=== PATIENT | female | born 1990 | race Caucasian/White ===

== ENCOUNTER 2021-07-17 14:00 | Outpatient (CLI) | payer MEDICAID, SELFPAY ==
[2021-07-17] VITALS (15 sets, daily range): BP systolic 95–108; BP diastolic 53–69; PULSE 80–127; RESP 18; TEMP 36.5; O2SAT 98–100; BMI 34.7
[2021-07-17 14:46] LABS: Basophils % 0.4 %; Eosinophils # 0.1 10^3/uL (0.0-0.8); Hematocrit 29.6 % (37.0-47.0); Hemoglobin 9.5 g/dL (11.5-15.3); Lymphocytes # 1.9 10^3/uL (0.8-4.8); Lymphocytes % 23.1 %; Mean Corpuscular HGB Conc 32.1 g/dL (30.0-36.0); Mean Corpuscular Hemoglobin 27.8 pg (28.0-34.0); Mean Corpuscular Volume 86.5 fl (81-99); Monocytes # 0.5 10^3/uL (0.2-0.9); Monocytes % 6.5 %; Neutrophils # 5.72 10^3/uL (1.8-7.7); Neutrophils % 68.5 %; Nucleated Red Blood Cells % 0 %; Platelet Count 284 10^3/cmm (130-400); Red Blood Count 3.42 10^6/uL (4.1-5.3); Red Cell Distribution Width 14.2 % (12.1-15.1); White Blood Count 8.3 10^3/uL (4.0-10.0)
[2021-07-17 15:06] LABS: Alanine Aminotransferase 10 U/L (0-33); Albumin Level 3.3 g/dL (3.5-5.2); Alkaline Phosphatase 80 IU/L (35-105); Anion Gap 15.8 (5-19); Aspartate Amino Transferase 14 U/L (0-32); Blood Urea Nitrogen 6 mg/dL (6-20); Calcium 7.4 mg/dL (8.5-10.5); Carbon Dioxide 18 mmol/L (22-29); Chloride 107 mmol/L (98-107); Globulin 2.3 g/dL (1.3-4.6); Glomerular Filtration Rate 145.9 mL/min (90-130); Glucose 84 mg/dL (65-115); Osmolality Calculated 281 mOsm/kg (285-295); Potassium 3.8 mmol/L (3.5-5.1); Sodium 137 mmol/L (136-145); Total Bilirubin 0.2 mg/dL (0.15-1.2); Total Protein 5.6 g/dL (6.6-8.7)
[2021-07-17 15:07] LABS: Bilirubin Urine Neg (Negative); Blood Urine Neg (Negative); Glucose Urine UA Norm (Normal); Ketones Urine Negative (Negative); Leukocyte Esterase Urine Negative (Negative); Nitrate Urine Negative (Negative); Protein Urine Neg (Negative); Urine Appearance Clear (CLEAR); Urine Color Straw (Yellow); Urine Creatinine 60 mg/dL (28-217); Urine Protein Random 7 mg/dL; Urobilinogen Urine Norm (Negative); pH Urine 6.5 (5-7)
[2021-07-17 15:08] LABS: UPRO/UCREAT Ratio 0.12 mg/mg CR
[2021-07-17 15:13] LABS: Add Urine Culture? No; Bacteria Urine TRACE /hpf; WBC Urine RARE /hpf (0-5)
== END 2021-07-17 15:30 | disposition home or self-care (01) ==
LOC: OPOB 14:02 → OBGYN 14:03
PROVIDERS: Visit Provider Obstetrics & Gynecology
DX: O26.899 Other specified pregnancy related conditions, unspecified trimester (principal); Z3A.00 Weeks of gestation of pregnancy not specified; R51.9 Headache, unspecified; H53.9 Unspecified visual disturbance
CPT/HCPCS: 36415; 59025; 80053; 81001; 82570; 84156; 84550; 85025; 99211

== ENCOUNTER 2023-09-29 20:10 | Emergency (ER) | payer SELFPAY ==
[2023-09-29 20:19] VITALS: BP 135/88; PULSE 69; RESP 14; TEMP 36.6; O2SAT 100
[2023-09-29 20:58] LABS: Basophils # 0.1 10^3/uL (0.0-0.1); Eosinophils # 0.2 10^3/uL (0.0-0.8); Eosinophils % 2.5 %; Hematocrit 34.3 % (36-47); Lymphocytes # 2.9 10^3/uL (0.8-4.8); Lymphocytes % 37.2 %; Mean Corpuscular HGB Conc 29.2 g/dL (30-55); Mean Corpuscular Hemoglobin 22.3 pg (27-33); Mean Corpuscular Volume 76.6 fl (85-98); Mean Platelet Volume 9.3 fL (7.4-10.4); Monocytes # 0.4 10^3/uL (0.2-0.9); Monocytes % 5.2 %; Neutrophils # 4.15 10^3/uL (1.8-7.7); Neutrophils % 53.8 %; Nucleated Red Blood Cells % 0 %; Platelet Count 488 10^3/cmm (157-399); Red Blood Count 4.48 10^6/uL (3.85-5.65); Red Cell Distribution Width 18.6 % (12.1-15.1); White Blood Count 7.71 10^3/uL (3.29-11.43)
--- NOTE | 2023-09-29 21:16 | USR_ITS ---
PROCEDURE INFORMATION: Exam: US First Trimester, Transabdominal and US , Transvaginal Exam date and time: 09/29/2023 10:11 PM Age: 33 years old Clinical indication: Lmp or gestational age (in weeks): 6w0d; Antepartum complications; Bleeding; Patient HX: + hcg- no iup visualized; Additional info: Threatened miscarriage LABS AND CLINICAL REPORTS: Last menstrual period start date: 08/12/2023 Estimated due date (Established): 05/18/2024 TECHNIQUE: Imaging protocol: Real-time transabdominal obstetrical ultrasound of the maternal pelvis and a first trimester , less than 14 weeks 0 days, with image documentation. Transvaginal imaging was used for better evaluation of the fetus, adnexa, and/or cervix. COMPARISON: No relevant prior studies available. FINDINGS: Gestation: Negative for intrauterine , patient remains at risk for ectopic , close clinical correlation, serial beta HCG levels, and follow-up ultrasound as clinically indicated advised. MATERNAL: Uterus: Unremarkable. Cervix: Cervical length measures 0 cm. Right ovary/adnexa: Unremarkable ovary. Left ovary/adnexa: Left ovary 19 mm cyst, may be corpus luteal in nature. Intraperitoneal space: No intraperitoneal free fluid. Urinary bladder: Suspected hyperechoic material in the urinary bladder, please correlate clinically. US/US OB <= 14 weeks fetus [id number] IMPRESSION: 1. Negative for intrauterine , patient remains at risk for ectopic , close clinical correlation, serial beta HCG levels, and follow-up ultrasound as clinically indicated advised. 2. Left ovary 19 mm cyst, may be corpus luteal in nature. 3. Suspected hyperechoic material in the urinary bladder, please correlate clinically.
--- NOTE | 2023-09-29 21:16 | ED_ITS ---
HPI - 2 General: Chief complaint: Vaginal Bleeding Stated complaint: Preg Cramps Time Seen by Provider: 09/29/23 20:30 Source: patient Mode of arrival: ambulatory Limitations: no limitations History of Present Illness: 33-year-old female who states she believ es she is roughly 8 weeks states she had had heavier vaginal bleeding today it slowed down she been having some lower abdominal cramping as well. Patient denies any fevers. She denies any vomiting or diarrhea. Associated symptoms: Deny abdominal pain, headache(s), nausea or vomiting Related Data: : 7 Review of Systems 2 Const: Denies: fever(s) or chills ENMT: Denies: throat pain or dental pain Card: Denies: chest pain Resp: Denies: dyspnea GI: Denies: abdominal pain, nausea, vomiting or diarrhea : Reports: vaginal bleeding Musc: Denies: neck pain or back pain Skin/Breast: Denies: rash Neuro: Denies: headache(s) [facility] ED 2 Female Reproductive History: : 7 Physical Exam 2 Const: COMMON NORMALS: no acute distress, patient oriented x3 and healthy appearing HENMT: COMMON NORMALS: normocephalic and atraumatic HEAD & SCALP: n ormocephalic and atraumatic Neck/C-Spine: COMMON NORMALS: full ROM Chest: COMMONS NORMALS: normal inspection of the chest Resp: COMMON NORMALS: normal respiratory effort Cardio: COMMON NORMALS: regular rate, regular rhythm and No murmurs present (Cardio) RATE: regular rate RHYTHM: regular rhythm GI: COMMON NORMALS: Normal to inspection, nondistended, normoactive bowel sounds present, Soft to palpation, non-tender and no masses PALPATION: Yes Soft to palpation Extremity: COMMON NORMALS: normal to inspection and full ROM Neuro: COMMON NORMALS: patient oriented x3, moves all extremities and no focal motor deficits Psych: COMMON NORMALS: mental status grossly normal, Normal thought process present and cooperative THOUGHT PROCESS: Normal thought process present Skin: COMMON NORMALS: no rashes or lesions noted and no wounds GENERAL SKIN EXAM: no rashes or lesions noted Course 2 Vital Signs: Vital signs: Vital Signs Temperature 97.8 F 09/29/23 20:19 Pulse Rate 69 09/29/23 20:19 Respiratory Rate 14 09/29/23 20:19 Blood Pressure 135/88 09/29/23 20:19 Pulse Oximetry 100 09/29/23 20:19 Oxygen Delivery Me thod Room Air 09/29/23 20:19 MDM - OB/Uterine Contractions Medical Decision Making Patient presents here with vaginal bleeding formal ultrasound here showed no signs of ectopic but she did refuse transvaginal ultrasound did explain to her that a transvaginal is the gold standard she states she did not want it her hemoglobin is stable her vital signs here are stable she is have a repeat quantitative in 48 hours. Medical Records I reviewed the patient's medical records. Lab Data I reviewed the patient's lab results. 09/29/23 20:40 Laboratory Results WBC 7.71 10^3/uL (3.29-11.43) 09/29/23 20:40 RBC 4.48 10^6/uL (3.85-5.65) 09/29/23 20:40 Hgb 10.00 g/dL (11.27-16.99) L 09/29/23 20:40 Hct 34.3 % (36-47) L 09/29/23 20:40 MCV 76.6 fl (85-98) L 09/29/23 20:40 MCH 22.3 pg (27-33) L 09/29/23 20:40 MCHC 29.2 g/dL (30-55) L 09/29/23 20:40 RDW 18.6 % (12.1-15.1) H 09/29/23 20:40 Plt Count 488 10^3/cmm (157-399) H 09/29/23 20:40 MPV 9.3 fL (7.4-10.4) 09/29/23 20:40 Neut % (Auto) 53.8 % 09/29/23 20:40 Lymph % (Auto) 37.2 % 09/29/23 20:40 [place] % (Auto) 5.2 % 09/29/23 20:40 Eos % (Auto) 2.5 % 09/29/23 20:40 Baso % (Auto) 1.0 % 09/29/23 20:40 Neut # (Auto) 4.15 10^3/uL (1.8-7.7) 09/29/23 20:40 Lymph # (Auto) 2.9 10^3/uL (0.8-4.8) 09/29/23 20:40 [place] # (Auto) 0.4 10^3/uL (0.2-0.9) 09/29/23 20:40 Eos # (Auto) 0.2 10^3/uL (0.0-0.8) 09/29/23 20:40 Baso # (Auto) 0.1 10^3/uL (0.0-0.1) 09/29/23 20:40 Nucleated RBC % (auto) 0 % 09/29/23 20:40 Nucleated RBCs # 0.0 /100WBC 09/29/23 20:40 Ser , Semi-Qnt 1217.00 mIU/mL 09/29/23 20:40 Blood Type AB Positive 09/29/23 20:40 Rho(D) Type Rh positive 09/29/23 20:40 All radiology interpretation(s) finalized by discharge Discharge Plan Discharge Patient Disposition: Home Clinical Impression: Threatened miscarriage Condition: Stable Prescriptions: No Action mupirocin 2 % ointment 1 applic topical TID 10 Days Qty: 15 0RF cephalexin 500 mg capsule 500 mg PO TID 7 Days Qty: 21 0RF Discharge Orders: Discharge ED (Routine); Ordered 09/29/23 Ordered By: Bhaskar Crain Discharge Diet: Advance as tolerated Discharge Activity: Resume usual activity Patient Instructions: Threatened Miscarriage (ED) Activity Restrictions/Additional Instructions: need repeat hcg level in 48 hours Coding Level of Care Code ED Tubing Mill Operator for Gaurang Harrington
--- NOTE | 2023-10-01 18:03 | PC.NURSE ---
Patient called on Monday10/01/23 to find out if she could come back to the ER and get her HCG levels checked and not have to have another ER visit. I checked to see what her chart said and Dr. Crain had stated in the chart that she could return to the ER to have her HCG levels checked in 48 hours. I explained that to the patient and the patient wanted me to speak with Dr. Crain when he arrived to the ER at 1800 to see if she really had to have another ER visit or if she could just get her blood drawn. I told her that I would ask Dr. Crain and call her back. I spoke with Dr. Crain when he arrived to work at 1800 on Monday and he stated that he had explained to the patient that she could return today and be seen again in the ER or she could see her primary care on Monday. I then called the patient back and stated exactly what Dr. Crain told me that he explained to her and the patient got very upset. She stated that Dr. Crain did not tell her she would have to be seen again in the ER and that she could just have her blood drawn and be told the results immediately and that she did not have a primary care so she had nowhere else to go. The patient stated that she had spoke to Urgent Care about having her HCG drawn there today but they told her she would not get the results immediately, it would be a few days. Patient then stated she was going to contact Dr. Crain's sulfuric acid plant supervisor or someone in charge tomorrow to complain because Dr. Crain did not know how to explains things or speak to his patients. I apologized to the patient and she stated that she wasn't trying to shoot the messenger that she was just very upset with Dr. Crain. I then told Dr. Crain about the phone call to keep him up to speed.
== END 2023-09-29 23:03 | disposition home or self-care (01) ==
PROVIDERS: Emergency Provider Emergency Medicine
DX: O20.0 Threatened abortion (principal); Z3A.08 8 weeks gestation of pregnancy
CPT/HCPCS: 36415; 76801; 80503; 84702; 85025; 86850; 86870; 86900; 86902; 99284

== ENCOUNTER 2023-10-15 18:14 | Emergency (ER) | payer MEDICAID, SELFPAY ==
--- NOTE | 2023-10-15 18:43 | ED_ITS ---
Documented by User: MARTA Mac 10/15/23 21:30 HPI - General Adult 2 General: Chief complaint: Abdominal Pain Stated complaint: atopic preg pain worse meds not right Time Seen by Provider: 10/15/23 18:42 History of Present Illness: 33-year-old female comes in today with w orsening abdominal pain to the right. Patient was told 2 weeks ago that she was positive for . Over the last 2 weeks she has had pain on and off and her primary care believes that she may have an ectopic . Patient sees Dr. Andrade. Patient was seen last night in the emergency room in [place] and they recommended she follow-up with [facility]GICAL ASSISTANT. Patient appears nontoxic. Patient appears in moderate pain. Review of Systems 2 General: Reports: 10 or more systems reviewed and unremarkable except in HPI and below Physical Exam 2 Const: COMMON NORMALS: alert HENMT: COMMON NORMALS: normocephalic HEAD & SCALP: normocephalic Neck/C-Spine: COMMON NORMALS: full ROM Resp: COMMON NORMALS: normal respiratory effort and clear to auscultation bilaterally AUSCULTATION: clear to auscultation bilaterally Cardio: COMMON NORMALS: regular rate RATE: regular rate GI: COMMON NORMALS: Soft to palpation PALPATION: Yes Soft to palpation and Yes Tenderness to palpation present (GI) Details: RLQ : COMMON NORMALS: Yes no CVA tenderness BLADDER/KIDNEY EXAM: Yes no CVA tenderness Back/Pelvis: COMMON NORMALS: no CVA tenderness Extremity: COMMON NORMALS: full ROM Neuro: SENSORIUM/ORIENTATION: Yes alert Skin: COMMON NORMALS: turgor normal GENERAL SKIN EXAM: turgor normal Course 2 Vital Signs: Vital signs: Vital Signs Temperature 97.9 F 10/15/23 18:46 Pulse Rate 102 H 10/15/23 19:22 Respiratory Rate 20 H 10/15/23 19:22 Blood Pressure 158/110 10/15/23 19:22 Pulse Oximetry 100 10/15/23 19:22 Oxygen Delivery Me thod Room Air 10/15/23 19:22 [facility] - General Adult Medical Decision Making 33-year-old female comes in today with complaints of right lower quadrant pain. Patient reports that she found out she was approximately 2 weeks ago and has had 2 ultrasounds that showed no evidence of intrauterine . Patient's hCG continues to be positive. Family doctor, Dr. Andrade, believes that she may have an ectopic . Patient was seen last night in the emergency department at [place] and I recommended follow-up with [facility]GICAL ASSIST[facility] services. Patient comes in here due to poor pain control with Percocet at home. Patient appears in moderate to severe pain. Vital signs are stable except for some elevated pulse at 130 and a blood pressure of 158. Differential diagnosis includes but not limited to ectopic , ovarian cyst, appendicitis. CBC noted to white count of 7000. BMP was unremarkable. CT of the abdomen pelvis noted no intra-abdominal pelvic process and no signs of a ectopic . I reviewed this with patient recommended follow-up with CERTIFIED SURGICAL ASSISTANT for possible D&C due to the persistent elevated hCG with possible missed . Case management was requested to assist with follow-up appointment. [id number], on discharge patient became upset and wanted to speak with the attending physician and not this nurse practitioner. I reviewed the case with Dr. Gutierrez who recommended that we go ahead and see if we could get a ultrasound copy of the report from the last visit at [facility]. And then we would talk with the patient together for further recommendations. As we reached out to [facility] patient became more upset and decided that she wanted to leave and not speak with the ER physician. Lab Data 10/15/23 19:17 10/15/23 19:17 Radiology Impressions Abdomen/Pelvis CT 10/15/23 19:01 IMPRESSION: 1. No acute intra-abdominal or pelvic process. Unremarkable CT appearance of the right lower quadrant. No inflammatory changes. Normal appendix. 2. Other nonemergent findings above. COMMENTS: Consistent with the [employer]'s Incidental Findings Committee white paper (J Am Sury Radiol 2018): Any incidental renal lesion less than 1 cm or classified as too small to characterize, or any incidental cystic renal lesion characterized as simple-appearing, is likely benign. No follow-up imaging is recommended for these lesions per consensus recommendations based on imaging criteria. Laboratory Results WBC 7.39 10^3/uL (3.29-11.43) 10/15/23 19:17 RBC 4.66 10^6/uL (3.85-5.65) 10/15/23 19:17 Hgb 11.00 g/dL (11.27-16.99) L 10/15/23 19:17 Hct 37.3 % (36-47) 10/15/23 19:17 MCV 80.0 fl (85-98) L 10/15/23 19:17 MCH 23.6 pg (27-33) L 10/15/23 19:17 MCHC 29.5 g/dL (30-55) L 10/15/23 19:17 RDW 21.5 % (12.1-15.1) H 10/15/23 19:17 Plt Count 448 10^3/cmm (157-399) H 10/15/23 19:17 MPV 9.3 fL (7.4-10.4) 10/15/23 19:17 Neut % (Auto) 55.6 % 10/15/23 19:17 Lymph % (Auto) 36.1 % 10/15/23 19:17 [place] % (Auto) 4.5 % 10/15/23 19:17 Eos % (Auto) 2.7 % 10/15/23 19:17 Baso % (Auto) 0.8 % 10/15/23 19:17 Neut # (Auto) 4.11 10^3/uL (1.8-7.7) 10/15/23 19:17 Lymph # (Auto) 2.7 10^3/uL (0.8-4.8) 10/15/23 19:17 [place] # (Auto) 0.3 10^3/uL (0.2-0.9) 10/15/23 19:17 Eos # (Auto) 0.2 10^3/uL (0.0-0.8) 10/15/23 19:17 Baso # (Auto) 0.1 10^3/uL (0.0-0.1) 10/15/23 19:17 Nucleated RBC % (auto) 0 % 10/15/23 19:17 Nucleated RBCs # 0.0 /100WBC 10/15/23 19:17 Sodium 141 mmol/L (136-145) 10/15/23 19:17 Potassium 4.3 mmol/L (3.5-5.1) 10/15/23 19:17 Chloride 107 mmol/L (98-107) 10/15/23 19:17 Carbon Dioxide 21 mmol/L (22-29) L 10/15/23 19:17 Anion Gap 17.3 (5-19) 10/15/23 19:17 BUN 7 mg/dL (6-20) 10/15/23 19:17 Creatinine 0.6 mg/dL (0.5-0.9) 10/15/23 19:17 GFR Calculation 115.9 mL/min (90-130) 10/15/23 19:17 Glucose 75 mg/dL (65-115) 10/15/23 19:17 Calculated Osmolality 289 mOsm/kg (285-295) 10/15/23 19:17 Calcium 9.5 mg/dL (8.5-10.5) 10/15/23 19:17 Total Bilirubin 0.2 mg/dL (0.15-1.2) 10/15/23 19:17 AST 17 U/L (0-32) 10/15/23 19:17 ALT 13 U/L (0-33) 10/15/23 19:17 Alkaline Phosphatase 63 U/L (35-105) 10/15/23 19:17 Total Protein 7.0 g/dL (6.6-8.7) 10/15/23 19:17 Albumin 4.6 g/dL (3.5-5.2) 10/15/23 19:17 Globulin 2.4 g/dL (1.3-4.6) 10/15/23 19:17 Ser , Semi-Qnt 1095.00 mIU/mL 10/15/23 19:17 All radiology interpretation(s) finalized by discharge Discharge Plan Discharge Patient Disposition: Home Clinical Impression: Elevated serum hCG Abdominal pain Qualifiers: Abdominal location: right lower quadrant Qualified Code(s): R10.31 - Right lower quadrant pain Condition: Stable Prescriptions: No Action mupirocin 2 % ointment 1 applic topical TID 10 Days Qty: 15 0RF cephalexin 500 mg capsule 500 mg PO TID 7 Days Qty: 21 0RF Discharge Orders: Discharge ED (Routine); Ordered 10/15/23 Ordered By: Missael Brannon Referrals: Noemí Andrade DO [Primary Care Provider] - Discharge Diet: Usual diet Discharge Activity: Increase activity as tolerated Patient Instructions: Abdominal Pain (ED) Activity Restrictions/Additional Instructions: Continue with routine medications as directed. Case management will contact you regarding follow-up with CERTIFIED SURGICAL ASSISTANT office. CT scan showed no signs of a or ruptured ectopic or other acute abnormalities. You will need to follow-up with the CERTIFIED SURGICAL ASSISTANT's office. Use acetaminophen and ibuprofen to help control pain. Use ice or heat for further pain relief. Return to ER for new concerns. Coding Level of Care Code ED Test Puller for Chg Fwd Documented by User: Naveen Gutierrez DO 10/16/23 00:22 HPI - General Adult 2 General: Chief complaint: Abdominal Pain Stated complaint: atopic preg pain worse meds not right Time Seen by Provider: 10/15/23 18:42 Course 2 Vital Signs: Vital signs: Vital Signs Temperature 97.9 F 10/15/23 18:46 Pulse Rate 102 H 10/15/23 19:22 Respiratory Rate 20 H 10/15/23 19:22 Blood Pressure 158/110 10/15/23 19:22 Pulse Oximetry 100 10/15/23 19:22 Oxygen Delivery Me thod Room Air 10/15/23 19:22 MDM - General Adult Medical Decision Making 33-year-old female comes in today with complaints of right lower quadrant pain. Patient reports that she found out she was approximately 2 weeks ago and has had 2 ultrasounds that showed no evidence of intrauterine . Patient's hCG continues to be positive. Family doctor, Dr. Andrade, believes that she may have an ectopic . Patient was seen last night in the emergency department at [place] and I recommended follow-up with CERTIFIED SURGICAL ASSISTANT services. Patient comes in here due to poor pain control with Percocet at home. Patient appears in moderate to severe pain. Vital signs are stable except for some elevated pulse at 130 and a blood pressure of 158. Differential diagnosis includes but not limited to ectopic , ovarian cyst, appendicitis. CBC noted to white count of 7000. BMP was unremarkable. CT of the abdomen pelvis noted no intra-abdominal pelvic process and no signs of a ectopic . I reviewed this with patient recommended follow-up with CERTIFIED SURGICAL ASSISTANT for possible D&C due to the persistent elevated hCG with possible missed . Case management was requested to assist with follow-up appointment. 2109, on discharge patient became upset and wanted to speak with the attending physician and not this nurse practitioner. I reviewed the case with Dr. Gutierrez who recommended that we go ahead and see if we could get a ultrasound copy of the report from the last visit at [facility]. And then we would talk with the patient together for further recommendations. As we reached out to [facility] patient became more upset and decided that she wanted to leave and not speak with the ER physician. This patient was originally seen by MARTA Greer.? I agree with his history, evaluation, and treatment. Lab Data 10/15/23 19:17 10/15/23 19:17 Radiology Impressions Abdomen/Pelvis CT 10/15/23 19:01 IMPRESSION: 1. No acute intra-abdominal or pelvic process. Unremarkable CT appearance of the right lower quadrant. No inflammatory changes. Normal appendix. 2. Other nonemergent findings above. COMMENTS: Consistent with the [employer] [employer]'s Incidental Findings Committee white paper (J Am Sury Radiol 2018): Any incidental renal lesion less than 1 cm or classified as too small to characterize, or any incidental cystic renal lesion characterized as simple-appearing, is likely benign. No follow-up imaging is recommended for these lesions per consensus recommendations based on imaging criteria. Laboratory Results WBC 7.39 10^3/uL (3.29-11.43) 10/15/23 19:17 RBC 4.66 10^6/uL (3.85-5.65) 10/15/23 19:17 Hgb 11.00 g/dL (11.27-16.99) L 10/15/23 19:17 Hct 37.3 % (36-47) 10/15/23 19:17 MCV 80.0 fl (85-98) L 10/15/23 19:17 MCH 23.6 pg (27-33) L 10/15/23 19:17 MCHC 29.5 g/dL (30-55) L 10/15/23 19:17 RDW 21.5 % (12.1-15.1) H 10/15/23 19:17 Plt Count 448 10^3/cmm (157-399) H 10/15/23 19:17 MPV 9.3 fL (7.4-10.4) 10/15/23 19:17 Neut % (Auto) 55.6 % 10/15/23 19:17 Lymph % (Auto) 36.1 % 10/15/23 19:17 [place] % (Auto) 4.5 % 10/15/23 19:17 Eos % (Auto) 2.7 % 10/15/23 19:17 Baso % (Auto) 0.8 % 10/15/23 19:17 Neut # (Auto) 4.11 10^3/uL (1.8-7.7) 10/15/23 19:17 Lymph # (Auto) 2.7 10^3/uL (0.8-4.8) 10/15/23 19:17 [place] # (Auto) 0.3 10^3/uL (0.2-0.9) 10/15/23 19:17 Eos # (Auto) 0.2 10^3/uL (0.0-0.8) 10/15/23 19:17 Baso # (Auto) 0.1 10^3/uL (0.0-0.1) 10/15/23 19:17 Nucleated RBC % (auto) 0 % 10/15/23 19:17 Nucleated RBCs # 0.0 /100WBC 10/15/23 19:17 Sodium 141 mmol/L (136-145) 10/15/23 19:17 Potassium 4.3 mmol/L (3.5-5.1) 10/15/23 19:17 Chloride 107 mmol/L (98-107) 10/15/23 19:17 Carbon Dioxide 21 mmol/L (22-29) L 10/15/23 19:17 Anion Gap 17.3 (5-19) 10/15/23 19:17 BUN 7 mg/dL (6-20) 10/15/23 19:17 Creatinine 0.6 mg/dL (0.5-0.9) 10/15/23 19:17 GFR Calculation 115.9 mL/min (90-130) 10/15/23 19:17 Glucose 75 mg/dL (65-115) 10/15/23 19:17 Calculated Osmolality 289 mOsm/kg (285-295) 10/15/23 19:17 Calcium 9.5 mg/dL (8.5-10.5) 10/15/23 19:17 Total Bilirubin 0.2 mg/dL (0.15-1.2) 10/15/23 19:17 AST 17 U/L (0-32) 10/15/23 19:17 ALT 13 U/L (0-33) 10/15/23 19:17 Alkaline Phosphatase 63 U/L (35-105) 10/15/23 19:17 Total Protein 7.0 g/dL (6.6-8.7) 10/15/23 19:17 Albumin 4.6 g/dL (3.5-5.2) 10/15/23 19:17 Globulin 2.4 g/dL (1.3-4.6) 10/15/23 19:17 Ser , Semi-Qnt 1095.00 mIU/mL 10/15/23 19:17 Discharge Plan Discharge Patient Disposition: Home Clinical Impression: Elevated serum hCG Abdominal pain Qualifiers: Abdominal location: right lower quadrant Qualified Code(s): R10.31 - Right lower quadrant pain Condition: Stable Prescriptions: No Action mupirocin 2 % ointment 1 applic topical TID 10 Days Qty: 15 0RF cephalexin 500 mg capsule 500 mg PO TID 7 Days Qty: 21 0RF Discharge Orders: Discharge ED (Routine); Ordered 10/15/23 Ordered By: Missael Brannon Referrals: Noemí Andrade DO [Primary Care Provider] - Discharge Diet: Usual diet Discharge Activity: Increase activity as tolerated Patient Instructions: Abdominal Pain (ED) Activity Restrictions/Additional Instructions: Continue with routine medications as directed. Case management will contact you regarding follow-up with CERTIFIED SURGICAL ASSISTANT office. CT scan showed no signs of a or ruptured ectopic or other acute abnormalities. You will need to follow-up with the CERTIFIED SURGICAL ASSISTANT's office. Use acetaminophen and ibuprofen to help control pain. Use ice or heat for further pain relief. Return to ER for new concerns. Coding Level of Care Code ED Test Puller for Gaurang Harrington
[2023-10-15 18:46] VITALS: BP 158/101; PULSE 130; RESP 16; TEMP 36.6; O2SAT 99; BMI 30.7
--- NOTE | 2023-10-15 19:01 | CTR_ITS ---
PROCEDURE INFORMATION: Exam: CT Abdomen And Pelvis With Contrast Exam date and time: 10/15/2023 7:46 PM Age: 33 years old Clinical indication: Abdominal pain; Localized; Right lower quadrant (rlq); Prior surgery; Surgery date: 6+ months; Surgery type: Gastric; Patient HX: C/O severe rlq pain. Patient was diagnosed with possible ectopic at outside facility yesterday. Approximately 8-9 weeks . TECHNIQUE: Imaging protocol: Computed tomography of the abdomen and pelvis with contrast. Radiation optimization: All CT scans at this facility use at least one of these dose optimization techniques: automated exposure control; mA and/or kV adjustment per patient size (includes targeted exams where dose is matched to clinical indication); or iterative reconstruction. Contrast material: OMNI 350; Contrast volume: 100 ml; Contrast route: INTRAVENOUS (IV); COMPARISON: US OB <= 14 weeks fetus [id number] 09/29/2023 10:11 PM RADIATION DOSE METRICS: Total DLP (mGy-cm): 776.86 FINDINGS: Lungs: The lung bases are clear. Heart: Heart size is within normal limits. There is no pericardial effusion or pericardial thickening. Liver: The liver is normal. No hepatic masses are identified. Gallbladder and bile ducts: The gallbladder is normal. There is no ductal dilatation. Pancreas: The pancreas is normal. Spleen: The spleen is normal. Adrenal glands: The adrenal glands are normal. Kidneys and ureters: There is normal enhancement of the kidneys. No renal calcifications are identified. There is no hydronephrosis. There are subcentimeter renal low-density lesions which are too small for accurate characterization, likely representing simple cysts. 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 There is no large or small bowel obstruction. There is no evidence of bowel wall thickening. Appendix: A normal appendix is identified. Intraperitoneal space: Unremarkable. No free air. No significant fluid collection. Vasculature: The aorta is normal in course and caliber. No significant atherosclerotic calcifications are present. Lymph nodes: There are no enlarged retroperitoneal or mesenteric lymph nodes. Urinary bladder: The bladder is unremarkable. Reproductive: The uterus is present. Incidental note is made of a corpus luteal cyst on the left. Bones/joints: No acute osseous abnormalities are seen. Soft tissues: The soft tissues are within normal limits. CT/CT abdomen pelvis w con* [id number] IMPRESSION: 1. No acute intra-abdominal or pelvic process. Unremarkable CT appearance of the right lower quadrant. No inflammatory changes. Normal appendix. 2. Other nonemergent findings above. COMMENTS: Consistent with the [employer]'s Incidental Findings Committee white paper (J Am Sury Radiol 2018): Any incidental renal lesion less than 1 cm or classified as too small to characterize, or any incidental cystic renal lesion characterized as simple-appearing, is likely benign. No follow-up imaging is recommended for these lesions per consensus recommendations based on imaging criteria.
[2023-10-15 19:19] VITALS: RESP 20; O2SAT 100
[2023-10-15] MEDS: sodium chloride 0.9% 1,000 ML 999 ML IV (19:19)
[2023-10-15] MEDS: HYDROmorphone 1 mg/mL INJ 1 mL IVP (19:19)
[2023-10-15 19:22] VITALS: BP 158/110; PULSE 102; RESP 20; O2SAT 100
[2023-10-15 19:25] LABS: Basophils # 0.1 10^3/uL (0.0-0.1); Basophils % 0.8 %; Eosinophils # 0.2 10^3/uL (0.0-0.8); Eosinophils % 2.7 %; Hematocrit 37.3 % (36-47); Lymphocytes # 2.7 10^3/uL (0.8-4.8); Lymphocytes % 36.1 %; Mean Corpuscular HGB Conc 29.5 g/dL (30-55); Mean Corpuscular Hemoglobin 23.6 pg (27-33); Mean Platelet Volume 9.3 fL (7.4-10.4); Monocytes # 0.3 10^3/uL (0.2-0.9); Monocytes % 4.5 %; Neutrophils # 4.11 10^3/uL (1.8-7.7); Neutrophils % 55.6 %; Nucleated Red Blood Cells % 0 %; Platelet Count 448 10^3/cmm (157-399); Red Blood Count 4.66 10^6/uL (3.85-5.65); Red Cell Distribution Width 21.5 % (12.1-15.1); White Blood Count 7.39 10^3/uL (3.29-11.43)
[2023-10-15] MEDS: iohexol 350 mg/mL 500 mL Btl (per mL) IV (19:45)
[2023-10-15 20:14] LABS: Alanine Aminotransferase 13 U/L (0-33); Albumin Level 4.6 g/dL (3.5-5.2); Alkaline Phosphatase 63 U/L (35-105); Anion Gap 17.3 (5-19); Aspartate Amino Transferase 17 U/L (0-32); Blood Urea Nitrogen 7 mg/dL (6-20); Calcium 9.5 mg/dL (8.5-10.5); Carbon Dioxide 21 mmol/L (22-29); Chloride 107 mmol/L (98-107); Creatinine Clr Calc Pharmacy 148.8631; Globulin 2.4 g/dL (1.3-4.6); Glomerular Filtration Rate 115.9 mL/min (90-130); Glucose 75 mg/dL (65-115); Osmolality Calculated 289 mOsm/kg (285-295); Potassium 4.3 mmol/L (3.5-5.1); Sodium 141 mmol/L (136-145); Total Bilirubin 0.2 mg/dL (0.15-1.2)
[2023-10-15] MEDS: ondansetron 2 mg/ML SDV 2 mL 4 MG IVP (20:25)
--- NOTE | 2023-10-16 08:49 | DCPLANNER ---
Message sent to OBGYN clinic for follow up -follow-up with [facility] office. CT scan showed no signs of a or ruptured ectopic or other acute abnormalities. You will need to follow-up with the MOBILE MANAGER's office. Use acetaminophen and ibuprofen to help control pain. Use ice or heat for further pain relief. Return to ER for new concerns.
== END 2023-10-15 21:16 | disposition home or self-care (01) ==
PROVIDERS: Emergency Provider Nurse Practitioner Family; PCP Family Medicine
DX: R10.31 Right lower quadrant pain (principal); R79.89 Other specified abnormal findings of blood chemistry
CPT/HCPCS: 74177; 80053; 84702; 85025; 96374; 96375; 99285; J1170; J2405; J7030; Q9967